=== PATIENT | female | born 1990 | race Caucasian/White ===

== ENCOUNTER → 2017-06-22 14:18 | Outpatient (CLI) | payer BC, SELFPAY ==
--- NOTE | 2017-06-22 14:28 | US_ITS ---
US OB >= 14 weeks Fetus: INDICATION: : 20 wk plus OB Anatomy Scan ORDERING PHYSICIAN: Gustavo Dunham MD PATIENT AGE: 26 years TECHNIQUE: ultrasound transabdominal scanning. COMPARISON: Only. 02/09/2017 study demonstrating very early 7 week gestation FINDINGS: Single viable intrauterine gestation. Active fetus. . Cephalic position Currently. Placenta: Posterior grade 1.. No previa The cervix appears satisfactory. Closed and measuring 4.4 in length. Complete survey performed and was unremarkable on the submitted images as in PACS. No discrete anomalies identified on survey imaging by technologist. Active fetus.Three-vessel cord with satisfactory umbilical cord insertion. Survey of brain & ventricles. In posterior fossa unremarkable Face and neck survey unremarkable. Nasion intact Diaphragm and chest views unremarkable. 4- chamber heart imaged. Cine loop included. LVOT imaged Abdomen: Both kidneys noted with upper normal renal pelvis. It measures up to 3.2 mm on left. No associated hydronephrosis otherwise evident. Stomach noted and satisfactory. Spine: Survey of the spine satisfactory with no anomalies identified nor imaged. Both arms and legs noted. Appears to be a male fetus Amniotic Fluid: Adequate. Maternal adnexa: No significant findings encountered. Measurements: Average ultrasound age 27 weeks 3 days. Gestational Age 26 weeks 0 days. .. based on LMP 12/22/16 Estimated due date by ultrasound age 409/18/17 Estimated weight 1103 grams +/- 1 6 1-gm. BPD = 27 weeks 3 day OFD = 26 weeks 6 day HC = 26 weeks 5 days AC = 28 weeks 4 day FL = 26 weeks 6 day Heart Rate = 135 bpm Cerebellum = 27 week 0 day Humerus = 27 week 2 day HC/AC = 1.02.(1.09-1.26.) ... I believe the abdominal circumference measurement which slightly oblique and thus generous accounting for this. CI = 78%.(70-86%). FL/BPD is 73% (normal 71-87%. FL/AC is 21% (22-24%) IMPRESSION: 27 week 3 day average ultrasound age Cephalic position . posterior placenta no previa . Anatomical survey WNL Only Note a slightly generous renal pelvis bilaterally but without erik hydronephrosis..
== END ==
PROVIDERS: PCP Internal Medicine; Visit Provider Nurse Practitioner Obstetrics & Gynecology
DX: Z36.0 Encounter for antenatal screening for chromosomal anomalies (principal); Z34.90 Encounter for supervision of normal pregnancy, unspecified, unspecified trimester
CPT/HCPCS: 76805

== ENCOUNTER 2017-08-17 21:54 | Observation (INO) | payer BC, SELFPAY ==
[2017-08-17 19:18] VITALS: BMI 27.9
[2017-08-17 19:43] LABS: Microscopic, Urine URINE MICROSCOPIC (MICROSCOPIC)
[2017-08-17 19:48] LABS: Appearance,Urine SL CLOUDY (Clear); Bilirubin,Urine Negative (Negative); Blood, Urine TRACE-I (Negative); Color,Urine YELLOW (Yellow); Glucose,Urine (UA) Negative (Negative); Ketones,Urine Negative (Negative); Leukocyte Esterase,Urine 2+ (Negative); Nitrate,Urine Negative (Negative); PH,Urine 6.5 (5.0-8.5); Protein,Urine Negative (Negative); Urobilinogen,Urine 0.2 EU/dl (0.2)
[2017-08-17 20:07] LABS: Bacteria,Urine 3+ /lpf; Mucus,Urine 1+ /lpf
[2017-08-17 20:22] VITALS: BP 118/76; PULSE 98; RESP 18; TEMP 36.7; O2SAT 99
[2017-08-17 20:26] VITALS: BP 118/76; PULSE 98; RESP 18; TEMP 36.7; O2SAT 99; BMI 27.9
[2017-08-17 20:33] LABS: Fetal Fibronectin (Rapid) Negative (Negative)
[2017-08-18 00:13] LABS: Magnesium 3.9 mg/dL (1.4-2.2)
--- NOTE | 2017-08-18 07:57 | P.HP_ITS ---
OB - H&P: HPI Antepartum - History of Present Illness Chief complaint: labor - History of Present Criteria for establishing EDC:: LMP confirmed by 1st trimester US care: good care Ultrasounds: normal 1st trimester US, normal mid trimester US Obstetrical complications: labor Medical complications: none Planning to breastfeed?: Yes [facility] History I have reviewed the patient's past medical history: Yes Medical History: Denies:: Anxiety, Asthma, Cancer, Depression, Diabetes Mellitus Type 1, Diabetes Mellitus Type 2, MRSA Amputation: No Fractures: No - *Social History Educational Level: Completed High School Smoking Status: Never smoker Tobacco Type: cigarettes Alcohol Intake: never Substance Use Type: denies use Occupational Status: unemployed Household Members: spouse, children - Psychiatric History Expresses thoughts of harming self/others: None Suicide Plan Description: No Plan Pschychiatric History:: Denies:: Anxiety, Depression *Family Hx:: Hypertension, Cancer, Diabetes, Heart Attack, Thyroid Disorder Para: 1 Meds Allergies Allergy/AdvReac Type Severity Reaction Status Date / Time No Known Allergies Allergy Verified 08/06/17 09:20 OB - H&P: Exam - Physical Exam Vital signs: Temp Pulse Resp BP Pulse Ox 98.0 F 98 H 18 118/76 99 08/17/17 20:26 08/17/17 20:26 08/17/17 20:26 08/17/17 20:26 08/17/17 20:26 - Constitutional no acute distress OB - Results - Labs Labs: Urine 08/17/17 Range/Units 19:20 Urine Color Yellow (Yellow) Urine Appearance Sl cloudy (Clear) Urine pH 6.5 (5.0-8.5) Ur Specific [place] 1.020 (1.005-1.030) Urine Protein Negative (Negative) Urine Glucose (UA) Negative (Negative) OB - A/P Antepartum (1) labor in third trimester Current visit: Yes Status: Acute - Additional Plan Plan: other (She is on magnesium sulfate as well as IV fluids and antibiotics. She has received steroids. We will transfer her to you case continues to have contractions and she has changed her cervix.)
--- NOTE | 2017-08-18 07:57 | HMH.DCSUM ---
General - General Admission date: 08/17/17 Discharge date: 08/18/17 HPI HPI: She is a 26-year-old 2 para 1 who is 33 and 6 weeks gestational age. She came in on the evening of August 17, 2017 with complaints of cramps. She was found to be having contractions every 2-3 minutes. Hospital Course Hospital Course: She was given a fluid bolus as well as subcutaneous terbutaline. She continued to have contractions and as result of that we elected to start her on magnesium sulfate. She received her initial dose of Celestone 12 mg at 10 PM on the evening of August 17, 2017. She was started on IV antibiotics. She is receiving 1 g of Ancef q. 8. On examination this morning her cervix is found to be 3 cm dilated approximately 50% effaced and very soft. She continues to have irregular contractions anywhere from 3-10 minutes apart. They are quite mild. Given the fact that she has changed her cervix we will go ahead and transfer her to the care of Dr. Elis Landaverde at the [facility]. She will be transferred by ambulance with IV magnesium sulfate at 2 g an hour. Objective Vital signs: Temp Pulse Resp BP Pulse Ox 98.0 F 98 H 18 118/76 99 08/17/17 20:26 08/17/17 20:26 08/17/17 20:26 08/17/17 20:26 08/17/17 20:26 no acute distress - *Routine Exam Comments: She has changed her cervix to 3 cm, 50% and station -2 and the cervix is very soft. Results Labs on day of discharge: Labs from last 24 hours 08/17/17 08/17/17 08/17/17 23:05 19:36 19:20 Magnesium 3.9 H Urine Color Yellow Urine Appearance Sl cloudy Urine pH 6.5 Ur Specific [place] 1.020 Urine Protein Negative Urine Glucose (UA) Negative Urine Ketones Negative Urine Blood Trace-i Urine Nitrate Negative Urine Bilirubin Negative Urine Urobilinogen 0.2 Ur Leukocyte Esterase 2+ A Urine RBC 3-5 Urine WBC 10-20 Ur Squamous Epith Cells 10-20 Urine Bacteria 3+ Urine Mucus 1+ Fibronectin Negative DS: Diagnosis - Discharge Diagnosis (1) labor in third trimester Status: Acute Discharge Plan - Patient Discharge Instructions ACTIVITY: Bed rest DIET: continue same diet - Follow up Plan Disposition: Xfer Short-Term Hosp Prescriptions/Medication Reconciliation: Continue triamcinolone acetonide 0.1 % topical ointment 1 applic TOPICAL TID PRN #30 g PRN Reason: poision nancy ferrous sulfate 325 mg (65 mg iron) tablet 325 mg PO DAILY #30 tab vitamin,calcium,mckgvsgm-xnqw-vuhut acid tablet 1 tab PO QDAY #30 each
--- NOTE | 2017-08-18 08:01 | P.DS_ITS ---
General - General Admission date: 08/17/17 Discharge date: 08/18/17 HPI HPI: She is a 26-year-old 2 para 1 who is 33 and 6 weeks gestational age. She came in on the evening of August 17, 2017 with complaints of cramps. She was found to be having contractions every 2-3 minutes. Hospital Course Hospital Course: She was given a fluid bolus as well as subcutaneous terbutaline. She continued to have contractions and as result of that we elected to start her on magnesium sulfate. She received her initial dose of Celestone 12 mg at 10 PM on the evening of August 17, 2017. She was started on IV antibiotics. She is receiving 1 g of Ancef q. 8. On examination this morning her cervix is found to be 3 cm dilated approximately 50% effaced and very soft. She continues to have irregular contractions anywhere from 3-10 minutes apart. They are quite mild. Given the fact that she has changed her cervix we will go ahead and transfer her to the care of Dr. Elis Landaverde at the [facility]. She will be transferred by ambulance with IV magnesium sulfate at 2 g an hour. Objective Vital signs: Temp Pulse Resp BP Pulse Ox 98.0 F 98 H 18 118/76 99 08/17/17 20:26 08/17/17 20:26 08/17/17 20:26 08/17/17 20:26 08/17/17 20:26 no acute distress - *Routine Exam Comments: She has changed her cervix to 3 cm, 50% and station -2 and the cervix is very soft. Results Labs on day of discharge: Labs from last 24 hours 08/17/17 08/17/17 08/17/17 23:05 19:36 19:20 Magnesium 3.9 H Urine Color Yellow Urine Appearance Sl cloudy Urine pH 6.5 Ur Specific [place] 1.020 Urine Protein Negative Urine Glucose (UA) Negative Urine Ketones Negative Urine Blood Trace-i Urine Nitrate Negative Urine Bilirubin Negative Urine Urobilinogen 0.2 Ur Leukocyte Esterase 2+ A Urine RBC 3-5 Urine WBC 10-20 Ur Squamous Epith Cells 10-20 Urine Bacteria 3+ Urine Mucus 1+ Fibronectin Negative DS: Diagnosis - Discharge Diagnosis (1) labor in third trimester Status: Acute Discharge Plan - Patient Discharge Instructions ACTIVITY: Bed rest DIET: continue same diet - Follow up Plan Disposition: Xfer Short-Term Hosp Prescriptions/Medication Reconciliation: Continue triamcinolone acetonide 0.1 % topical ointment 1 applic TOPICAL TID PRN #30 g PRN Reason: poision nancy ferrous sulfate 325 mg (65 mg iron) tablet 325 mg PO DAILY #30 tab vitamin,calcium,vglddqfo-wenw-taorj acid tablet 1 tab PO QDAY #30 each
[2017-08-18 08:06] VITALS: BP 147/68; PULSE 118; RESP 16; TEMP 36.9; O2SAT 99
== END 2017-08-18 08:30 | disposition short-term general hospital (02) ==
LOC: OBOUT 21:55 → OB 21:58
PROVIDERS: Admitting Provider Nurse Practitioner Obstetrics & Gynecology; PCP Nurse Practitioner Obstetrics & Gynecology; Visit Provider Nurse Practitioner Obstetrics & Gynecology
DX: O60.03 Preterm labor without delivery, third trimester (principal); Z3A.33 33 weeks gestation of pregnancy
CPT/HCPCS: 36415; 59025; 81001; 82731; 83735; 87086; 96360; 96372; G0378; J0595

== ENCOUNTER 2017-08-22 13:08 | Outpatient (CLI) | payer BC, SELFPAY ==
[2017-08-22 13:19] VITALS: BMI 27.1
[2017-08-22 13:39] VITALS: BP 117/78; PULSE 128; RESP 20; TEMP 36.7; O2SAT 98; BMI 27.1
[2017-08-22 13:41] LABS: Microscopic, Urine URINE MICROSCOPIC (MICROSCOPIC)
[2017-08-22 13:42] LABS: Appearance,Urine CLEAR (Clear); Bilirubin,Urine Negative (Negative); Blood, Urine Negative (Negative); Color,Urine YELLOW (Yellow); Glucose,Urine (UA) Negative (Negative); Ketones,Urine Negative (Negative); Leukocyte Esterase,Urine Negative (Negative); Nitrate,Urine Negative (Negative); Protein,Urine Negative (Negative); Specific Gravity, Urine 1.015 (1.005-1.030); Urobilinogen,Urine 0.2 EU/dl (0.2)
[2017-08-22 14:01] LABS: Amorphous Sediment,Urine 1+ /lpf; Bacteria,Urine 1+ /lpf; Mucus,Urine 2+ /lpf; WBC,Urine Occasional #/hpf (0-3)
== END 2017-08-22 15:25 | disposition home or self-care (01) ==
LOC: OBOUT 13:10 → OB 13:12
PROVIDERS: PCP Internal Medicine; Visit Provider Obstetrics & Gynecology
DX: O60.03 Preterm labor without delivery, third trimester (principal); Z3A.34 34 weeks gestation of pregnancy
CPT/HCPCS: 59025; 81001

== ENCOUNTER → 2017-08-26 16:53 | Outpatient (REF) | payer BC, SELFPAY | LOC: LAB 16:53 | PROVIDERS: Visit Provider Nurse Practitioner Obstetrics & Gynecology | DX: Z34.90 Encounter for supervision of normal pregnancy, unspecified, unspecified trimester (principal) | CPT/HCPCS: 86403 ==

== ENCOUNTER 2017-09-15 04:23 | Inpatient (IN) ==
[2017-09-15 04:41] VITALS: BP 114/68
[2017-09-15 05:35] LABS: Basophils % 0.2 % (0.1-2.0); Eosinophils % 0.5 % (0.1-12.0); Hematocrit 42.3 % (37.0-47.0); Hemoglobin 14.3 g/dL (12.2-16.2); Lymphocytes # 2.1 K/mm3 (0.7-4.5); Lymphocytes % 21.8 K/mm3 (10-50); Mean Corpuscular HGB Conc 33.8 g/dL (31.8-35.4); Mean Corpuscular Hemoglobin 30.6 pg (27.0-31.2); Mean Corpuscular Volume 90.6 fl (81-99); Mean Platelet Volume 7.8 fl (7.4-10.4); Monocytes # 0.5 K/mm3 (0.1-1.0); Monocytes % 5.5 % (1.7-9.3); Neutrophils # 6.7 K/mm3 (1.8-7.8); Neutrophils % 71.9 % (37.0-80.0); Platelet Count 221 K/mm3 (142-424); Red Blood Count 4.67 M/mm3 (4.20-5.40); Red Cell Distribution Width 14.8 % (11.5-17.5); White Blood Count 9.4 K/mm3 (4.8-10.8)
--- NOTE | 2017-09-15 06:17 | Progress Note ---
[facility] Anesthesia Checklist - Patient Identification Patient Identification: Arm Band, Verbal (Name & ) - Structural Data Admitted From: Inpatient Planned Operative Procedure/s: labor epidural Consent for Planned Operative Procedure(s) Verified: Yes Verified Documents: Surgical Consent - Chart Verification Results Verified: CBC, BMP - Additional verifications Patient : Yes Anesthesia Reactions: No Hx Blood Transfusions: No Blood Transfusion Reaction: No Cephalosporin Allergy: No Previous Colonoscopy: No - Cardiovascular Assessment Heart Sounds: S1 & S2 Pulse Strength: Baseline Pulse Rhythm: Regular Peripheral Edema: No - Airway Assessment C-Spine Mobility Assessed: Yes TMJ Mobility Assessed: Yes Dentition: Good Dentition - Neurological Assessment Level of Consciousness: Awake, Alert, Appropriate Hx Seizures: No Numbness or tingling in extremities: No - Anesthesia Plan Anesthesia Risk discussed: Yes Anesthesia Plan: Verified ASA Class: II Anesthesia Type: Epidural [facility] Anesthesia HX I have reviewed the patient's past medical history: Yes Medical History: Denies:: Anxiety, Asthma, Cancer, Depression, Diabetes Mellitus Type 1, Diabetes Mellitus Type 2, MRSA Other Surgeries: Yes: No Previous Surgery Amputation: No Fractures: No *Family Hx:: Hypertension, Cancer, Diabetes, Heart Attack, Thyroid Disorder
--- NOTE | 2017-09-15 07:55 | History & Physical Report ---
OB - H&P: HPI Antepartum - History of Present Illness Chief complaint: Active labor - History of Present Criteria for establishing EDC:: LMP confirmed by 1st trimester US care: good care Ultrasounds: normal 1st trimester US, normal mid trimester US Obstetrical complications: labor Medical complications: none Planning to breastfeed?: Yes [facility] History I have reviewed the patient's past medical history: Yes Medical History: Denies:: Anxiety, Asthma, Cancer, Depression, Diabetes Mellitus Type 1, Diabetes Mellitus Type 2, MRSA, Seizures Other Medical History: Denies: Blood Transfusion Reaction Other Surgeries: Yes: No Previous Surgery Amputation: No Fractures: No - *Social History Smoking Status: Never smoker Tobacco Type: cigarettes Alcohol Intake: never Substance Use Type: denies use Occupational Status: unemployed Household Members: spouse, children - Psychiatric History Expresses thoughts of harming self/others: None Suicide Plan Description: No Plan Pschychiatric History:: Denies:: Anxiety, Depression *Family Hx:: Hypertension, Cancer, Diabetes, Heart Attack, Thyroid Disorder [employer] history: Para: 1 Review of Systems - Review of Systems Review of systems:: pertinent systems reviewed and negative unless documented below Meds Home Medications Medication Instructions Recorded Confirmed Type Ferrous Sulfate [Ferrous Sulfate 325 mg PO DAILY 09/15/17 09/15/17 History 325mg Tablet] Vit Calc,Iron,Folic [Kpn] 1 tab PO QDAY 09/15/17 09/15/17 History Allergies Allergy/AdvReac Type Severity Reaction Status Date / Time No Known Allergies Allergy Verified 09/07/17 10:05 OB - H&P: Exam - Physical Exam Vital signs: Temp Pulse Resp BP Pulse Ox 98.7 F 91 H 18 114/68 98 09/15/17 04:36 09/15/17 04:36 09/15/17 04:36 09/15/17 04:36 09/15/17 04:36 - Constitutional no acute distress OB - Results - Labs Labs: Short CBC 09/15/17 Range/Units 04:57 WBC 9.4 (4.8-10.8) K/mm3 Hgb 14.3 (12.2-16.2) g/dL Hct 42.3 (37.0-47.0) % Plt Count 221 (142-424) K/mm3 OB - A/P Antepartum (1) Normal delivery Current visit: Yes Status: Acute - Additional Plan Plan: expectant management (I ruptured her membranes and she is 7 cm dilated.) Planning to breastfeed?: Yes
--- NOTE | 2017-09-15 07:58 | Progress Note ---
Labor Note - Subjective: Date: 09/15/17 Time: 07:57 regular contraction - Objective: NST:: Reactive Contractions:: every 2-3 minutes Cervical Dilation:: 7 Effacement:: 100% Station: 0 Membranes: articially ruptured, bulging - Fetus: Monitoring?: Yes monitoring type:: Internal and External Comment:: IUPC inserted - Assessment: Labor progressing?: Yes Cephalopelvic disproportion?: No Patient Problems: All Active Problems labor in third trimester (Acute) Normal delivery (Acute) (Acute) - Plan: Anesthesia for epidural?: Yes Continue to labor down?: Yes Plan for ?: No Continue to monitor?: Yes Start pushing?: No
--- NOTE | 2017-09-15 10:00 | Progress Note ---
Labor Note - Subjective: Date: 09/15/17 Time: 10:00 - Objective: NST:: Reactive Contractions:: every 2-3 minutes Cervical Dilation:: 9-10 Effacement:: 100% Station: +1 Membranes: articially ruptured - Fetus: Monitoring?: Yes monitoring type:: Internal and External - Assessment: Labor progressing?: Yes Cephalopelvic disproportion?: No Patient Problems: All Active Problems labor in third trimester (Acute) Normal delivery (Acute) (Acute) - Plan: Anesthesia for epidural?: Yes Continue to labor down?: Yes Plan for ?: No Continue to monitor?: Yes Start pushing?: Yes
--- NOTE | 2017-09-15 10:22 | Procedure Note ---
- Delivery Note Delivery Date:: 09/15/17 Delivery Time:: 10:05 Anesthesia Type: Epidural Was labor medically induced?: No Induction method: none delivered prior to 39 weeks?: Yes Justification for early elective delivery:: Active Labor Infant Gender: Male at 1 minute: 8 at 5 minutes: 9 LAC or MLE?: LAC (Bilateral labial) Delivery Procedure:: She is a 27-year-old 2 para 1 who was 37 and 6 weeks gestational age. She came in in active labor and was found to be 7 cm dilated. She subsequent we had her membranes ruptured and was augmented with oxytocin. She progressed under labor epidural to full dilation and delivered spontaneously a liveborn male child at 10:05 AM on the morning of September 15, 2017. On deliver the head the anterior shoulder then delivered followed by the rest of the infant's body atraumatically. The oropharynx and nasopharynx were bulb suctioned. The baby cried spontaneously. We allowed the cord to continue to pulsate for approximately 1 minute and then doubly clamped the cord and cut the cord. The baby was then placed on the mother's abdomen for further care. The nurses assigned Apgars of 8 at 1 minute and 9 minutes. We then obtained cord blood as well as cord pH. Using gentle traction on the cord and The I Was Able to Easily Deliver the Placenta Intact. It had a normal three-vessel cord. She had bilateral labial tears that were repaired with interrupted 3-0 Vicryl Rapide suture. Estimated blood loss was approximately 400 cc. Laceration:: labial (Bilateral) Placental Delivery Description: Spontaneous
--- NOTE | 2017-09-16 10:38 | Progress Note ---
Internal Medicine - PN: Subj *Date: 09/16/17 *Time: 10:37 Interval history: She is doing well this morning. She is eating and drinking and ambulate in. She is breast-feeding. Her lochia is normal. Exam Vital signs and Labs for Last 24 Hours: Temp Pulse Resp BP Pulse Ox 98.7 F 91 H 18 114/68 98 09/15/17 04:36 09/15/17 04:36 09/15/17 04:36 09/15/17 04:36 09/15/17 04:36 Laboratory Results - last 24 hr 09/16/17 06:30: Hgb 12.0 L, Hct 36.0 L I & O for Last 24 hours: Intake & Output 09/13/17 09/14/17 09/15/17 09/16/17 11:59 11:59 11:59 11:59 Weight 179 lb - Constitutional no acute distress Assessment and Plan (1) Normal delivery Current visit: Yes Status: Acute Category: Medical Code(s): O80 - Encounter for full-term uncomplicated delivery; Z37.9 - Outcome of delivery, unspecified - Assessment and plan all Dx Assessment and Plan for all problems:: She continues to do well 1 day . She will be discharged home tomorrow.
--- NOTE | 2017-09-17 08:14 | Discharge Summary ---
General - General Admission date: 09/15/17 Discharge date: 09/17/17 HPI HPI: She is a 27-year-old 2 now para 2 who was 37 and 6 weeks gestational age. She came in in active labor and was found to be 6 cm dilated. As result of that she was admitted for labor and delivery. Hospital Course Hospital Course: She progressed under labor epidural and delivered spontaneously a liveborn male child at 10:05 AM on the morning of September 15, 2017. The baby weighed 9 lbs. 12 oz. and was 21 inches long. He had Apgars of 8 at 1 minute and 9 at 5 minutes. She has done well and has remained afebrile throughout her hospitalization. She is eating and drinking and ambulating. She is breast- feeding. She has O+ blood, she is rubella immune and was group A streptococcus negative. She is discharged home to follow-up with me in 2 weeks time. She will continue with her vitamins and iron. Objective Vital signs: Temp Pulse Resp BP Pulse Ox 98.7 F 91 H 18 114/68 98 09/15/17 04:36 09/15/17 04:36 09/15/17 04:36 09/15/17 04:36 09/15/17 04:36 DS: Diagnosis - Discharge Diagnosis (1) Normal delivery Status: Acute Discharge Plan - Patient Discharge Instructions ACTIVITY: No heavy lifting DIET: continue same diet - Follow up Plan Disposition: Home, Self-Longterm Medications: Home Medications Medication Instructions Recorded Confirmed Type Ferrous Sulfate [Ferrous Sulfate 325 mg PO DAILY 09/15/17 09/15/17 History 325mg Tablet] Vit Calc,Iron,Folic [Kpn] 1 tab PO QDAY 09/15/17 09/15/17 History Prescriptions/Medication Reconciliation: Continue Ferrous Sulfate [Ferrous Sulfate 325mg Tablet] 325 mg PO DAILY Vit Calc,Iron,Folic [Kpn] 1 tab PO QDAY
== END 2017-09-17 10:25 | disposition home or self-care (01) ==
LOC: OBOUT 04:23 → OB 04:24
PROVIDERS: ADMIT Obstetrics & Gynecology; ATTEND Nurse Practitioner Obstetrics & Gynecology

== ENCOUNTER 2018-11-11 07:54 | Emergency (ER) | payer BC, SELFPAY ==
[2018-11-11 08:03] VITALS: BP 129/73; PULSE 103; RESP 16; TEMP 37.1; O2SAT 98; BMI 23.3
--- NOTE | 2018-11-11 08:09 | HMH.EDGENADL ---
ED Disposition Clinical Impression: Gastroenteritis Disposition: Home, Self-Care Condition on Discharge: Good Instructions: DI for Nausea -- Adult Additional Instructions: clear liquids todya Referrals: Gal Peterson [Primary Care Provider] - Time of Disposition: 09:56 - Critical Care Critical Care Time: No Attestation: On 11/11/18, the high probability of a clinically significant, sudden or life threatening deterioration of the following system(s) required my full and direct attention, intervention and personal management. The time I documented below is in addition to time spent performing reported procedures but includes the following listed in this critical care notation. Medical Decision Making - Medical Records Medical records reviewed: Yes: I reviewed the patient's medical records. - Gus Inquiry Pt receiving controlled substance: No Gus was queried for this patient: No Vital Signs: 11/11/18 08:03 11/11/18 08:46 11/11/18 09:54 Temperature 98.8 F Temperature Source Oral Pulse Rate [Left Radial] 103 H 78 91 H Respiratory Rate 16 Blood Pressure [Right Arm] 129/73 96/45 L 109/54 L Blood Pressure Mean [Right Arm] 91 62 72 Blood Pressure Source [Right Arm] Automatic Cuff Blood Pressure Position [Right Arm] Sitting 02 Sat by Pulse Oximetry 98 100 98 Oxygen Delivery Method Room Air - Lab Data Lab results reviewed: Yes: I reviewed the patient's lab results. Lab Results 11/11/18 08:27: WBC 11.4 H, RBC 5.22, Hgb 15.6, Hct 44.3, MCV 84.9, MCH 29.9, MCHC 35.2, RDW 12.3, Plt Count 309, MPV 7.1 L, Neut % (Auto) 82.5 H, Lymph % (Auto) 12.1, [place] % (Auto) 4.5, Eos % (Auto) 0.5, Baso % (Auto) 0.3, Neut # (Auto) 9.4 H, Lymph # (Auto) 1.4, [place] # (Auto) 0.5, Eos # (Auto) 0.1, Baso # (Auto) 0.0 11/11/18 08:27: Sodium 139, Potassium 4.0, Chloride 104, Carbon Dioxide 25, Anion Gap 14.0, BUN 16, Creatinine 0.65, Estimated Creat Clear 136, Estimated GFR 110, Est GFR ( Amer) 133, Glucose 100, Calcium 9.0, Total Bilirubin 0.6, AST 11 L, ALT 17, Alkaline Phosphatase 178 H, Total Protein 7.7, Albumin 4.3, Globulin 3.4 H, Albumin/Globulin Ratio 1.3 11/11/18 09:10: Urine HCG, Qual Negative Result diagrams: 11/11/18 08:27 11/11/18 08:27 Orders (Tests/Meds): ED MEDICATIONS Discontinued Medications Generic Name Dose Route Start Last Admin Trade Name Freq PRN Reason Stop Dose Admin Sodium Chloride 1,000 mls @ 999 mls/hr 11/11/18 08:30 11/11/18 08:31 Sod Chlor 0.9% 1000ml Bag IV 11/11/18 09:30 999 mls/hr .Q1H1M AUGUSTIN Administration Ondansetron HCl 4 mg 11/11/18 08:27 11/11/18 08:27 Zofran 4mg/2ml Vial IV 11/11/18 08:28 4 mg ONCE ONE Administration Ondansetron HCl 4 mg 11/11/18 08:51 11/11/18 08:51 Zofran 4mg/2ml Vial IV 11/11/18 08:52 4 mg ONCE ONE Administration ORDERS Category Date Time Status Urinalysis and Microscopic Stat Lab 11/11/18 09:10 Received General Adult HPI - General Chief complaint: Nausea/Vomiting/Diarrhea Stated complaint: vomiting and weakness Time Seen by Provider: 11/11/18 08:09 Mode of Arrival: Ambulatory Source of Information: Patient Limitations: No Limitations Description of Symptoms (Recalled from ER Triage Doc. by RN): to ed per pvt car with c/o nausea, vomiting x 2, lower abd pain starting this am at approx 615. pt denies diarrhea, sick contacts. cpta none - History of Present Illness HPI narrative: acute onset n/v this am. severe upper abd cramping. no hematemesis. No diarrhea. fine yesterday, without symptoms. Has sunburn on upper back and shoulders but not severe - Related Data Home Medications Medication Instructions Recorded Confirmed Vit Calc,Iron,Folic [Kpn] 1 tab PO QDAY 09/15/17 11/11/18 Ferrous Sulfate 325 mg PO DAILY 11/11/18 11/11/18 Levonorgestrel-Ethin Estradiol 1 tab PO ONCE 11/11/18 11/11/18 [Levonor-Eth Estrad 0.1-0.02 mg] Allergies Allergy/AdvReac Type Severity
--- NOTE | 2018-11-11 08:17 | ED_ITS ---
ED Disposition Clinical Impression: Gastroenteritis Disposition: Home, Self-Care Condition on Discharge: Good Instructions: DI for Nausea -- Adult Additional Instructions: clear liquids todya Referrals: Gal Peterson [Primary Care Provider] - Time of Disposition: 09:56 - Critical Care Critical Care Time: No Attestation: On 11/11/18, the high probability of a clinically significant, sudden or life threatening deterioration of the following system(s) required my full and direct attention, intervention and personal management. The time I documented below is in addition to time spent performing reported procedures but includes the following listed in this critical care notation. Medical Decision Making - Medical Records Medical records reviewed: Yes: I reviewed the patient's medical records. - Gus Inquiry Pt receiving controlled substance: No Gus was queried for this patient: No Vital Signs: 11/11/18 08:03 11/11/18 08:46 11/11/18 09:54 Temperature 98.8 F Temperature Source Oral Pulse Rate [Left Radial] 103 H 78 91 H Respiratory Rate 16 Blood Pressure [Right Arm] 129/73 96/45 L 109/54 L Blood Pressure Mean [Right Arm] 91 62 72 Blood Pressure Source [Right Arm] Automatic Cuff Blood Pressure Position [Right Arm] Sitting 02 Sat by Pulse Oximetry 98 100 98 Oxygen Delivery Method Room Air - Lab Data Lab results reviewed: Yes: I reviewed the patient's lab results. Lab Results 11/11/18 08:27: WBC 11.4 H, RBC 5.22, Hgb 15.6, Hct 44.3, MCV 84.9, MCH 29.9, MCHC 35.2, RDW 12.3, Plt Count 309, MPV 7.1 L, Neut % (Auto) 82.5 H, Lymph % (Auto) 12.1, [place] % (Auto) 4.5, Eos % (Auto) 0.5, Baso % (Auto) 0.3, Neut # (Auto) 9.4 H, Lymph # (Auto) 1.4, [place] # (Auto) 0.5, Eos # (Auto) 0.1, Baso # (Auto) 0.0 11/11/18 08:27: Sodium 139, Potassium 4.0, Chloride 104, Carbon Dioxide 25, Anion Gap 14.0, BUN 16, Creatinine 0.65, Estimated Creat Clear 136, Estimated GFR 110, Est GFR ( Amer) 133, Glucose 100, Calcium 9.0, Total Bilirubin 0.6, AST 11 L, ALT 17, Alkaline Phosphatase 178 H, Total Protein 7.7, Albumin 4.3, Globulin 3.4 H, Albumin/Globulin Ratio 1.3 11/11/18 09:10: Urine HCG, Qual Negative Result diagrams: 11/11/18 08:27 11/11/18 08:27 Orders (Tests/Meds): ED MEDICATIONS Discontinued Medications Generic Name Dose Route Start Last Admin Trade Name Freq PRN Reason Stop Dose Admin Sodium Chloride 1,000 mls @ 999 mls/hr 11/11/18 08:30 11/11/18 08:31 Sod Chlor 0.9% 1000ml Bag IV 11/11/18 09:30 999 mls/hr .Q1H1M AUGUSTIN Administration Ondansetron HCl 4 mg 11/11/18 08:27 11/11/18 08:27 Zofran 4mg/2ml Vial IV 11/11/18 08:28 4 mg ONCE ONE Administration Ondansetron HCl 4 mg 11/11/18 08:51 11/11/18 08:51 Zofran 4mg/2ml Vial IV 11/11/18 08:52 4 mg ONCE ONE Administration ORDERS Category Date Time Status Urinalysis and Microscopic Stat Lab 11/11/18 09:10 Received General Adult HPI - General Chief complaint: Nausea/Vomiting/Diarrhea Stated complaint: vomiting and weakness Time Seen by Provider: 11/11/18 08:09 Mode of Arrival: Ambulatory
[2018-11-11 08:46] VITALS: BP 96/45; PULSE 78; O2SAT 100
[2018-11-11 08:48] LABS: Basophils % 0.3 % (0.1-2.0); Eosinophils # 0.1 K/mm3 (0.0-0.4); Eosinophils % 0.5 % (0.1-12.0); Hematocrit 44.3 % (37.0-47.0); Hemoglobin 15.6 g/dL (12.2-16.2); Lymphocytes # 1.4 K/mm3 (0.7-4.5); Lymphocytes % 12.1 % (10-50); Mean Corpuscular HGB Conc 35.2 g/dL (31.8-35.4); Mean Corpuscular Hemoglobin 29.9 pg (27.0-31.2); Mean Corpuscular Volume 84.9 fl (81-99); Mean Platelet Volume 7.1 fl (7.4-10.4); Monocytes # 0.5 K/mm3 (0.1-1.0); Monocytes % 4.5 % (1.7-9.3); Neutrophils # 9.4 K/mm3 (1.8-7.8); Neutrophils % 82.5 % (37.0-80.0); Platelet Count 309 K/mm3 (142-424); Red Blood Count 5.22 M/mm3 (4.20-5.40); Red Cell Distribution Width 12.3 % (11.5-17.5); White Blood Count 11.4 K/mm3 (4.8-10.8)
[2018-11-11 08:56] LABS: Alanine Aminotransferase 17 U/L (12-78); Albumin Level 4.3 gm/dL (3.4-5.0); Albumin/Globulin Ratio 1.3 (1.1-1.8); Alkaline Phosphatase 178 U/L (46-116); Aspartate Amino Transferase 11 U/L (15-37); Bilirubin,Total 0.6 mg/dL (0.2-1.0); Blood Urea Nitrogen 16 mg/dL (7-18); Carbon Dioxide 25 mmol/L (21.0-32.0); Chloride 104 mmol/L (98-107); Creatinine Clearance Estimated 136 mL/min (50-200); Creatinine,Serum 0.65 mg/dL (0.55-1.02); Estimated Glomerular Filt Rate 110 ml/min (>60); GFR (African American) 133 ML/MIN (>60); Globulin 3.4 gm/dl (1.3-3.2); Glucose 100 mg/dL (74-106); Sodium 139 mmol/L (136-145); Total Protein,Serum 7.7 gm/dL (6.4-8.2)
[2018-11-11 09:34] LABS: Microscopic, Urine URINE MICROSCOPIC (MICROSCOPIC)
[2018-11-11 09:41] LABS: Appearance,Urine CLEAR (Clear); Bilirubin,Urine Negative (Negative); Blood, Urine Negative (Negative); Color,Urine YELLOW (Yellow); Glucose,Urine (UA) Negative (Negative); Ketones,Urine Negative (Negative); Leukocyte Esterase,Urine TRACE (Negative); Nitrate,Urine Negative (Negative); Protein,Urine Negative (Negative); Specific Gravity, Urine >= 1.030 (1.005-1.030); Urobilinogen,Urine 0.2 EU/dl (0.2)
[2018-11-11 09:46] LABS: Urine Pregnancy, HCG Qual. Negative (Negative)
[2018-11-11 09:54] VITALS: BP 109/54; PULSE 91; O2SAT 98
[2018-11-11 09:58] LABS: Squamous Epithelial Cell,Urine 20-50 #/hpf (0-5); WBC,Urine Occasional #/hpf (0-3)
[2018-11-11 09:59] LABS: Bacteria,Urine 2+ /lpf; Mucus,Urine 1+ /lpf
[2018-11-11 10:11] VITALS: BP 104/62; PULSE 90; RESP 16; TEMP 36.6; O2SAT 97
== END 2018-11-11 10:18 | disposition home or self-care (01) ==
PROVIDERS: Emergency Provider Emergency Medicine; PCP Internal Medicine
DX: K52.9 Noninfective gastroenteritis and colitis, unspecified (principal)
CPT/HCPCS: 80053; 81001; 81025; 85025; 87077; 87086; 87088; 96365; 96375; 96376; 99283; J2405

== ENCOUNTER 2020-07-12 06:43 | Emergency (ER) | payer BC, SELFPAY ==
[2020-07-12 06:45] VITALS: BP 140/80; PULSE 111; RESP 14; TEMP 37.1; O2SAT 99; BMI 26.6
--- NOTE | 2020-07-12 07:04 | XR_ITS ---
PROCEDURE: XR HIP LT 2-3V W/PELVIS CLINICAL INDICATION: pain Left hip pain COMPARISON: No exams were available for comparison FINDINGS: No fracture or dislocation is evident. No significant degenerative change. No lytic or blastic change. Unremarkable soft tissues. IMPRESSION: Negative left hip Dictated by: Adair Rosa MD 07/12/2020 09:20 Adair Rosa MD in [place] 07/12/2020 09:20
[2020-07-12 07:24] LABS: Urine Pregnancy, HCG Qual. Negative (Negative)
[2020-07-12 07:45] VITALS: BP 126/62; PULSE 97; O2SAT 98
--- NOTE | 2020-07-12 07:45 | HMH.EDBACK ---
ED Disposition Clinical Impression: Sciatica Qualifiers: Laterality: left Qualified Code(s): M54.32 - Sciatica, left side Disposition: Home, Self-Care Condition on Discharge: Good Instructions: DI for Sciatica Additional Instructions: use meds and see pcp for follow up Prescriptions: predniSONE [Prednisone 20mg Tab] 20 mg PO BID #10 tab Transmission Status: Pending to [facility] Ketorolac Tromethamine [Toradol 10mg tablet] 10 mg PO Q6H 2 Days #8 tab Transmission Status: Pending to [facility] Referrals: Gal Peterson [Primary Care Provider] - - Critical Care Critical Care Time: No Attestation: On 07/12/20, the high probability of a clinically significant, sudden or life threatening deterioration of the following system(s) required my full and direct attention, intervention and personal management. The time I documented below is in addition to time spent performing reported procedures but includes the following listed in this critical care notation. Medical Decision Making - Medical Records Medical records reviewed: Yes: I reviewed the patient's medical records. - Gus Inquiry Pt receiving controlled substance: No Vital Signs: 07/12/20 06:45 07/12/20 07:45 07/12/20 08:30 Temperature 98.7 F Temperature Source Oral Pulse Rate [Right Brachial] 111 H 97 H 89 Respiratory Rate 14 Blood Pressure [Right Arm] 140/80 126/62 111/67 Blood Pressure Mean [Right Arm] 100 83 81 Blood Pressure Source [Right Arm] Automatic Cuff Blood Pressure Position [Right Arm] Sitting 02 Sat by Pulse Oximetry 99 98 97 Oxygen Delivery Method Room Air Room Air - Lab Data Lab results reviewed: Yes: I reviewed the patient's lab results. Lab Results 07/12/20 07:15: Urine HCG, Qual Negative 07/12/20 07:25: Urine Color Yellow, Urine Appearance Clear, Urine pH 6.5, Ur Specific [place] 1.015, Urine Protein Negative, Urine Glucose (UA) Negative, Urine Ketones Negative, Urine Blood Negative, Urine Nitrate Negative, Urine Bilirubin Negative, Urine Urobilinogen 0.2, Ur Leukocyte Esterase Negative, Urine WBC Occasional, Ur Squamous Epith Cells 3-5 07/12/20 07:53: WBC 10.6, RBC 5.31, Hgb 15.0, Hct 44.9, MCV 84.5, MCH 28.3, MCHC 33.5, RDW 13.7, Plt Count 339, MPV 7.6, Neut % (Auto) 75.0, Lymph % (Auto) 18.8, [place] % (Auto) 4.3, Eos % (Auto) 1.4, Baso % (Auto) 0.6, Neut # (Auto) 7.9 H, Lymph # (Auto) 2.0, [place] # (Auto) 0.5, Eos # (Auto) 0.2, Baso # (Auto) 0.1 07/12/20 07:53: Sodium 138, Potassium 4.0, Chloride 101, Carbon Dioxide 29, Anion Gap 12.0, BUN 14, Creatinine 0.70, Estimated Creat Clear 138, Estimated GFR 100, Est GFR ( Amer) 121, Glucose 107 H, Calcium 9.8 07/12/20 07:53: Total Bilirubin 0.5, Direct Bilirubin 0.2, Conjugated Bilirubin 0.0, Indirect Bilirubin 0.3, Unconjugated Bilirubin 0.3, AST 29, ALT 11 L, Alkaline Phosphatase 156 H, C-Reactive Protein 8.7 H, Total Protein 7.9, Albumin 4.7, Lipase 139 Result diagrams: 07/12/20 07:53 07/12/20 07:53 Orders (Tests/Meds): ED MEDICATIONS Discontinued Medications Generic Name Dose Route Start Last Admin Trade Name Freq PRN Reason Stop Dose Admin Ketorolac Tromethamine 30 mg 07/12/20 07:52 07/12/20 07:58 Ketorolac 30mg/Ml Vial IV 07/12/20 07:53 30 mg ONCE ONE Administration ORDERS Category Date Time Status CT abdomen pelvis wo con Stat Cat Scan 07/12/20 07:51 Taken XR hip LT 2-3V w/pelvis Stat Exams 07/12/20 07:04 Taken XR lumbar spine min 4V Stat Exams 07/12/20 07:52 Taken ESR [Erythrocyte Sedimentation Rate] Stat Lab 07/12/20 07:53 Received - Radiology Data #1 Image(s): L-Spine, Hip Image Reviewed: Yes I reviewed the patient's radiology image Preliminary Findings: No Fracture Seen - CT Data CT Scan: Abdomen, Pelvis Time Received: 08:[address] Reviewed: Yes: I have viewed the radiologist's interpretation Preliminary Findings: Normal/NAD Medical Decision Narrative: possible radicular pain
--- NOTE | 2020-07-12 07:51 | CT_ITS ---
PROCEDURE: CT ABDOMEN PELVIS WO CON CLINICAL INDICATION: flank pain Lower flank pain COMPARISON: No exams were available for comparison TECHNIQUE: Axial images obtained with sagittal and coronal reformats. All CT scans at the facility use one or more dose reduction, viz: automated exposure control, ma/kV adjustment per patient size (including targeted exams where dose is matched to indication, i.e. head), or iterative reconstruction technique. FINDINGS: LOWER THORAX: No acute finding ABDOMEN & PELVIS: The liver has an unremarkable appearance. There is mild splenomegaly at 14 cm. Unremarkable adrenal glands. The pancreas and gallbladder have an unremarkable appearance. No renal calculi. No hydronephrosis. There is a calcific density in the right pelvic region near the ureterovesical junction and could be due to phleboliths. A nonobstructing stone is not excluded. The patient's pain however is reported to be on the right side. This lies in the region of the distal ureter. Unremarkable appendix. There is a mild amount of retained colonic feces. No intestinal obstruction or free air. There is a small amount of fluid in the cul-de-sac. Small umbilical hernia is present containing fat. There are some scattered small mesenteric lymph nodes which are nonspecific. No acute bony findings. IMPRESSION: 1. No definite acute finding. 2. 4 mm calcific density at the region of the right ureterovesical junction probably related to phleboliths. There is no ureteral dilatation on the right and patient's pain is reported to be on the left. There is a small amount fluid in the cul-de-sac which is nonspecific. 3. Other nonacute findings as described above. Dictated by: Adair Rosa MD 07/12/2020 09:35 Adair Rosa MD in [facility] 07/12/2020 09:35
--- NOTE | 2020-07-12 07:52 | XR_ITS ---
PROCEDURE: XR LUMBAR SPINE MIN 4V CLINICAL INDICATION: back pain COMPARISON: No exams were available for comparison FINDINGS: No fracture or dislocation. No lytic or blastic change. There is normal mineralization. There is minimal lumbar curvature convex left. The SI joints have an unremarkable appearance. The disc spaces are well preserved. No significant degenerative change. Other findings:None. IMPRESSION: Minimal lumbar curvature convex left otherwise negative Dictated by: Adair Rosa MD 07/12/2020 09:19 Adair Rosa MD in [facility] 07/12/2020 09:19
[2020-07-12 08:06] LABS: Basophils # 0.1 K/mm3 (0-0.2); Basophils % 0.6 % (0.1-2.0); Eosinophils # 0.2 K/mm3 (0.0-0.4); Eosinophils % 1.4 % (0.1-12.0); Hematocrit 44.9 % (37.0-47.0); Lymphocytes % 18.8 % (10-50); Mean Corpuscular HGB Conc 33.5 g/dL (31.8-35.4); Mean Corpuscular Hemoglobin 28.3 pg (27.0-31.2); Mean Corpuscular Volume 84.5 fl (81-99); Mean Platelet Volume 7.6 fl (7.4-10.4); Monocytes # 0.5 K/mm3 (0.1-1.0); Monocytes % 4.3 % (1.7-9.3); Neutrophils # 7.9 K/mm3 (1.8-7.8); Platelet Count 339 K/mm3 (142-424); Red Blood Count 5.31 M/mm3 (4.20-5.40); Red Cell Distribution Width 13.7 % (11.5-17.5); White Blood Count 10.6 K/mm3 (4.8-10.8)
[2020-07-12 08:09] LABS: Alanine Aminotransferase 11 U/L (12-78); Albumin Level 4.7 g/dl (3.5-5.0); Alkaline Phosphatase 156 U/L (38-126); Aspartate Amino Transferase 29 U/L (14-36); Bilirubin,Direct 0.2 mg/dl (0.0-0.4); Bilirubin,Indirect 0.3 mg/dL (0.0-0.9); Bilirubin,Total 0.5 mg/dl (0.2-1.3); Bilirubin,Unconjugated 0.3 mg/dL (0.0-1.1); Blood Urea Nitrogen 14 mg/dl (7-17); Calcium 9.8 mg/dl (8.4-10.2); Carbon Dioxide 29 mmol/L (22.0-30.0); Chloride 101 mmol/L (98-107); Creatinine Clearance Estimated 138 mL/min (50-200); Estimated Glomerular Filt Rate 100 ml/min (>60); GFR (African American) 121 ML/MIN (>60); Glucose 107 mg/dl (74-100); Lipase 139 U/L (23-300); Sodium 138 mmol/L (136-145); Total Protein,Serum 7.9 g/dl (6.3-8.2)
--- NOTE | 2020-07-12 08:09 | PC.NURSE ---
to ct per wheelchair
[2020-07-12 08:14] LABS: C-Reactive Protein 8.7 mg/L (0-4)
[2020-07-12 08:15] LABS: Microscopic, Urine URINE MICROSCOPIC (MICROSCOPIC)
[2020-07-12 08:16] LABS: Appearance,Urine CLEAR (Clear); Bilirubin,Urine Negative (Negative); Blood, Urine Negative (Negative); Color,Urine YELLOW (Yellow); Glucose,Urine (UA) Negative (Negative); Ketones,Urine Negative (Negative); Leukocyte Esterase,Urine Negative (Negative); Nitrate,Urine Negative (Negative); PH,Urine 6.5 (5.0-8.5); Protein,Urine Negative (Negative); Specific Gravity, Urine 1.015 (1.005-1.030); Urobilinogen,Urine 0.2 EU/dl (0.2)
[2020-07-12 08:25] LABS: WBC,Urine Occasional #/hpf (0-3)
[2020-07-12 08:30] VITALS: BP 111/67; PULSE 89; O2SAT 97
[2020-07-12 09:24] LABS: Erythrocyte Sedimentation Rate 10 mm/hr (0-20)
[2020-07-12 09:46] VITALS: BP 99/68; PULSE 85; RESP 18; TEMP 37.1; O2SAT 99
== END 2020-07-12 09:50 | disposition home or self-care (01) ==
PROVIDERS: Emergency Provider Emergency Medicine; PCP Internal Medicine
DX: M54.32 Sciatica, left side (principal)
CPT/HCPCS: 72110; 73502; 74176; 80048; 80076; 81001; 81025; 83690; 85025; 85651; 86140; 96374; 96375; 99283

== ENCOUNTER → 2021-02-06 08:08 | Outpatient (CLI) | payer BC, SELFPAY ==
--- NOTE | 2021-02-06 08:09 | CT_ITS ---
PROCEDURE INFORMATION: Exam: CT Abdomen And Pelvis Without And With Contrast Exam date and time: 02/06/2021 8:09 AM Age: 30 years old Clinical indication: Abdominal pain; Localized; Right lower quadrant (rlq); Additional info: Right lower quad pain/ rule out appendicitis TECHNIQUE: Imaging protocol: Computed tomography of the abdomen and pelvis without and with contrast. Radiation optimization: All CT scans at this facility use at least one of these dose optimization techniques: automated exposure control; mA and/or kV adjustment per patient size (includes targeted exams where dose is matched to clinical indication); or iterative reconstruction. Contrast material: ISO 370; Contrast volume: 75 ml; Contrast route: INTRAVENOUS (IV); COMPARISON: CT ABDOMEN PELVIS WO CON 07/12/2020 8:15 AM FINDINGS: Lungs: There is pulmonary granulomatous scarring.No consolidation. Liver: Normal. No mass. Gallbladder and bile ducts: Normal. No calcified stones. No ductal dilation. Pancreas: Normal. No ductal dilation. Spleen: Normal. No splenomegaly. Adrenal glands: Normal. No mass. Kidneys and ureters: Normal. No hydronephrosis. Stomach and bowel: There is moderate colonic stool retention. No dilatation. Appendix: No evidence of appendicitis. Intraperitoneal space: Unremarkable. No free air. No significant fluid collection. Vasculature: Unremarkable. No abdominal aortic aneurysm. Lymph nodes: Unremarkable. No enlarged lymph nodes. Urinary bladder: Unremarkable as visualized. Reproductive: There is a 2.8 CM. cyst in the right ovary. Bones/joints: Unremarkable. No acute fracture. Soft tissues: Unremarkable. IMPRESSION: Right ovarian cyst.
== END ==
PROVIDERS: PCP Internal Medicine; Visit Provider Nurse Practitioner Obstetrics & Gynecology
DX: R10.31 Right lower quadrant pain (principal); K37 Unspecified appendicitis
CPT/HCPCS: 74178; Q9967

== ENCOUNTER → 2021-03-07 11:53 | Outpatient (CLI) | payer BC, SELFPAY | PROVIDERS: PCP Nurse Practitioner Family; Visit Provider Nurse Practitioner | DX: Z20.822 Contact with and (suspected) exposure to COVID-19 (principal) | CPT/HCPCS: C9803; U0003; U0005 ==

== ENCOUNTER → 2021-03-11 09:05 | Outpatient (CLI) | payer BC, SELFPAY | PROVIDERS: PCP Internal Medicine; Visit Provider Nurse Practitioner | DX: Z20.822 Contact with and (suspected) exposure to COVID-19 (principal); U07.1 COVID-19 | CPT/HCPCS: C9803; U0003; U0005 ==

== ENCOUNTER 2023-02-28 08:02 | Emergency (ER) | payer BC, OTHER, SELFPAY ==
[2023-02-28 08:02] VITALS: BP 128/84; PULSE 99; RESP 18; TEMP 36.7; O2SAT 95; BMI 26.6
--- NOTE | 2023-02-28 08:24 | EXP.UTC ---
Discharge Plan Disposition Patient Disposition: Home, Self-Care Condition: Good Prescriptions Prescriptions: New cephalexin [cephalexin] 500 mg tablet 500 mg PO BID 7 Days Qty: 14 0RF Referrals Follow up/Referrals: Gal Peterson MD [Primary Care Provider] - See instructions Activity Restrictions/Add. Instructions Additional Instructions/Restrictions: Increase fluids, water and not soda or tea. Can drink cranberry juice or cranberry extract. Wipe front to back Wear cotton underwear Empty bladder after intercourse Start antibiotics immediately and make sure you take the full course although you may start to see improvement over the next 48 hours. You can eat yogurt or take probiotics to decrease diarrhea or yeast infection caused by the antibiotic Be sure to follow-up anytime for new or worsening symptoms in 48 hours for wound urine culture results be sure to let you PCP no recent urine for culture so they can request records and ensure that you have appropriate antibiotic if you are not getting better or getting worse. If symptoms worsen or do not improve return or be seen in the ER. Follow-up with primary care this week. Clinical Impressions Clinical Impression: UTI (urinary tract infection) Qualifiers: Urinary tract infection type: acute cystitis Hematuria presence: with hematuria Qualified Code(s): N30.01 - Acute cystitis with hematuria Instructions Patient Instructions: DI for Urinary Tract Infection (UTI) [facility]charge [facility] [place] General Stated complaint: possible UTI Mode of Arrival: Ambulatory Source of Information: Patient Limitations: No Limitations Time Seen by Provider: 02/28/23 08:24 Description of Symptoms (Recalled from Triage Doc. by RN): Patient reports possibly having a uti. Complaint of pressure and frequent urination since yesterday. HEENT Symptoms (Recalled from RN notes): No Resp Symptoms (Recalled from RN notes): No Skin Symptoms (Recalled from RN notes): No MS Symptoms (Recalled from RN notes): No Functional Status (Recalled from RN notes): wnl History of Present Illness Provider Complaint: 32 yr old female presents for freq, urgency, and burning with voiding since . Related Data Previous Rx's Medication Instructions Recorded cephalexin 500 mg tablet 500 mg PO BID 7 days #14 tabs 02/28/23 Allergies Allergy/AdvReac Type Severity Reaction Status Date / Time No Known Allergies Allergy Verified 02/05/21 09:57 Worker's Comp Is this a Worker's Comp case?: No [facility] Disclaimer: The information contained in this section may have been updated after the patient was seen, as this information can be updated by other users. Social History , [employer]) Smoking Status: Never smoker second hand exposure: No alcohol intake: never substance use type: denies use current occupational status: employed Travel in the last 8 weeks: None household members: spouse and children current occupational exposures/hazards: No ROS Obtained: Yes All systems reviewed & no additional complaints except as documented Constitutional Constitutional: Reports system reviewed and no additional complaints, except as documented Eyes Eyes: Reports system reviewed and no additional complaints, except as documented ENT Ears, Nose, Mouth, and Throat: Reports system reviewed and no additional complaints, except as documented Cardiovascular Cardiovascular: Reports system reviewed and no additional complaints, except as documented Respiratory Respiratory: Reports system reviewed and no additional complaints, except as documented Gastrointestinal Gastrointestingal: Reports system reviewed and no additional complaints, except as documented Genitourinary Female Genitourinary: Reports system reviewed and no additional complaints, except as documented, Reports as per HPI, Reports dysuria, Reports urinary frequency, Reports
[2023-02-28 08:43] LABS: Microscopic, Urine URINE MICROSCOPIC (MICROSCOPIC)
[2023-02-28 08:46] LABS: Appearance,Urine TURBID (Clear); Bilirubin,Urine Negative (Negative); Blood, Urine 2+ (Negative); Color,Urine ORANGE (Yellow); Glucose,Urine (UA) TRACE (Negative); Ketones,Urine Negative (Negative); Leukocyte Esterase,Urine 2+ (Negative); Nitrate,Urine POSITIVE (Negative); PH,Urine 6.5 (5.0-8.5); Protein,Urine 2+ (Negative); Specific Gravity, Urine 1.015 (1.005-1.030)
[2023-02-28 09:01] LABS: Bacteria,Urine 1+ /lpf; WBC,Urine 20-50 #/hpf (0-3)
[2023-02-28 09:04] VITALS: BP 128/84; PULSE 95; RESP 18; TEMP 36.7; O2SAT 99
== END 2023-02-28 09:05 | disposition home or self-care (01) ==
PROVIDERS: Emergency Provider Nurse Practitioner Family; PCP Internal Medicine
DX: N39.0 Urinary tract infection, site not specified (principal); B96.89 Other specified bacterial agents as the cause of diseases classified elsewhere; R31.9 Hematuria, unspecified
CPT/HCPCS: 81001; 87086; 87088; 87186; 99204; 99212; G0463